=== PATIENT | female | born 1940 | race African-American/Black ===

== ENCOUNTER 2022-02-16 14:17 | Emergency (ER) | payer OTHER ==
[~2022-02-16] VITALS: Ht 162.6 cm; Wt 52.0 kg
[2022-02-16 15:31] LABS: BASOPHILS % 0.5 % (0.0-2.0); EOSINOPHILS % 2.9 % (0.0-5.0); HEMATOCRIT. 45.3 % (36.0-48.0); HEMOGLOBIN. 14.9 g/dL (12.0-16.0); MEAN CORPUSCULAR HEMOGLOBIN 31.3 pg (28.0-32.0); MEAN PLATELET VOLUME 9.8 fl (7.4-10.4); NEUTROPHILS % 78.6 % (40.0-76.0); PLATELET 171 x1000/uL (130-400); RED BLOOD CELL COUNT 4.77 mill/uL (4.2-5.4); RED CELL DISTRIBUTION WIDTH 13.7 % (11.6-14.6)
[2022-02-16 15:38] LABS: CHLORIDE 112 mEq/L (98-107)
[2022-02-16 17:40] LABS: CLARITY URINE CLOUDY (CLEAR); COLOR URINE DARK YELLOW (YELLOW); KETONES URINE TRACE (NEGATIVE); LEUKOCYTE ESTERASE URINE TRACE (NEGATIVE); NITRITE URINE NEGATIVE (NEGATIVE); OCCULT BLOOD URINE NEGATIVE (NEGATIVE); PROTEIN URINE TRACE (NEGATIVE); SPECIFIC GRAVITY URINE 1.037 (1.005-1.030)
[2022-02-16] MEDS ORDERED: CEPH500C2 MT (19:42)
[2022-02-16] MEDS ORDERED: CEPHALEXIN 250MG CAPSULE PO ONE (19:45)
[2022-02-16] MEDS ORDERED: HYDROCODONE/ACETAMINOPHEN 5/325MG TABLET PO ONE (20:00)
[2022-02-16 21:22] VITALS: BP 112/73
== END 2022-02-16 21:28 | disposition home or self-care (01) ==
LOC: ER 14:17
DX: R55 Syncope and collapse (principal); R07.89 Other chest pain; M25.551 Pain in right hip; J44.9 Chronic obstructive pulmonary disease, unspecified; F03.90 Unspecified dementia, unspecified severity, without behavioral disturbance, psychotic disturbance, mood disturbance, and anxiety
CPT/HCPCS: 36415; 71045; 71100; 73502; 80053; 81003; 83880; 84484; 85025; 99285